=== PATIENT | female | born 1975 | race African-American/Black ===

== ENCOUNTER 2020-06-11 11:10 | Emergency (ER) | payer MEDICARE, MEDICAID ==
[~2020-06-11] VITALS: Ht 165.1 cm; Wt 140.6 kg
[~2020-06-11 11:10] MED LIST: ACCUNEB SO1.25 MG/1; ACETAMINOPHEN-1 EAC1 PO; ALBUTEROL INH; ALBUTEROL NEB; ALL DAY ALLERGY10 M1 PO; ATIVAN0.5 MG PO; AZITHROMYCIN 2250 MG PO; BENTYL20 MG PO; BUSPAR 5 MG TABL5 M1 PO; BUSPIRONE HCL10 MG PO; DESYREL50 MG PO; DOXEPIN 50MG CA50 M1 PO; FLONASE 0.05%50 MCG NASAL; HYDROCHLOROTHIA25 M1 PO; IBUPROFEN 800800 M1 PO; IRON325; LEVOTHYROXINE0.05 MG; METFORMIN HCL500 MG; NEBULIZER; NORCO 5-325 TA1 EACH PO; PENICILLIN V P500 MG PO; PREDNISONE 10 M10 MG PO; PREDNISONE 20 M20 M1 PO; PROMETHAZINE HC25 M1 PO; PROMETHAZINE-C120 ML PO; ROBAXIN500 MG PO; SINGULAIR 10 MG10 M1 PO; SLOW FE 160MG160 MG PO
[2020-06-11] MEDS ORDERED: DESYREL150 MG PO (11:21)
[2020-06-11 11:51] LABS: ABSOLUTE EOSINOPHILS 0.1 thou/uL (0.0-0.7); ABSOLUTE LYMPHOCYTES 1.6 thou/uL (0.8-5.3); ABSOLUTE MONOCYTES 0.4 thou/uL (0.0-1.2); ABSOLUTE NEUTROPHILS 2.9 thou/uL (1.6-8.1); BASOPHILS 0.5 %; EOSINOPHILS 1.2 %; HEMOGLOBIN 10.1 gm/dL (12.0-15.0); LYMPHOCYTES 32.7 %; MCH 25.8 pg (26.0-34.0); MCHC 32.5 g/dL (28.0-37.0); MCV 79.2 fL (80.0-100.0); MONOCYTES 7.5 %; MPV 8.5 fl. (7.2-11.1); NUCLEATED RBCS 0 /100WBC; PLATELET COUNT* 272 thou/uL (150-400); POLYS 58.1 %; RBC 3.92 mil/uL (4.20-5.00); RDW-CV 16.6 % (10.5-14.5)
[2020-06-11 12:00] LABS: CALCIUM 8.7 mg/dL (8.5-10.1); CREATININE 0.8 mg/dL (0.6-1.3)
[2020-06-11 12:05] LABS: ALBUMIN 3.2 g/dL (3.4-5.0); TOTAL BILIRUBIN 0.3 mg/dL (<0.1-1.0); TOTAL PROTEIN 7.8 g/dL (6.4-8.2)
[2020-06-11 12:24] LABS: APTT 31.1 Seconds (25.0-31.3); PROTIME 10.7 Seconds (9.20-11.50)
[2020-06-11 12:35] VITALS: BP 110/52
--- NOTE | 2020-06-11 16:16 | EKG ---
[place] [address] ELECTROCARDIOGRAM REPORT Name: RASHMI PHILLIPS Room: [facility]#: [id number] Admission: 06/11/20 Attend Phys: Discharge: 06/11/20 Date of : 77 Date of Service: 06/11/20 1147 Report #: [id number] THIS REPORT FOR: //name// [facility] ED Test Date: 2020-06-11 Test Time: 11:47:07 Pat Name: RASHMI PHILLIPS Department: Room: Gender: F A Auxiliary: CCD : 1975 Requested By: Bandar Arce Order Number: [id number] MD: Gallito Kamara Measurements Intervals [place] Rate: 53 P: 20 LA: 129 QRS: 47 QRSD: 130 T: 9 QT: 470 QTc: 442 Interpretive Statements Sinus rhythm Nonspecific intraventricular conduction delay Borderline T abnormalities, inferior leads Artifact in lead(s) I,II,III,aVR,aVL,V1,V2,V3,V4,V5,V6 Compared to ECG 03/02/2015 18:10:52 Intraventricular conduction delay now present T-wave abnormality now present Electronically Signed On 06-11-2020 16:16:22 CDT by Gallito Kamara [email or web address] <ELECTRONICALLY SIGNED> By: Gallito Kamara MD, [facility] 06/11/20 1616 1147 1147 Gallito Kamara MD, [facility] /EPI
== END 2020-06-11 12:36 | disposition home or self-care (01) ==
LOC: M.ERS 11:10
PROVIDERS: Family Medicine
DX: R20.2 Paresthesia of skin (principal); E11.9 Type 2 diabetes mellitus without complications; E66.9 Obesity, unspecified; J45.909 Unspecified asthma, uncomplicated; F32.9 Major depressive disorder, single episode, unspecified; F41.9 Anxiety disorder, unspecified; Z86.2 Personal history of diseases of the blood and blood-forming organs and certain disorders involving the immune mechanism